=== PATIENT | female | born 1950 | race Caucasian/White ===

== ENCOUNTER → 2023-09-14 09:14 | Outpatient (CLI) | payer MEDICARE, OTHER, SELFPAY ==
[2023-09-14 10:26] LABS: Alanine Aminotransferase 19 IU/L (<35); Albumin Globulin Ratio 1.2 (1.0-2.8); Alkaline Phosphatase 67 U/L (38-126); Aspartate Aminotransferase 22 IU/L (14-36); Bilirubin Total 0.8 mg/dL (0.2-1.3); Blood Urea Nitrogen 13 mg/dL (7-17); Calcium 9.4 mg/dL (8.4-10.2); Carbon Dioxide 27 mmol/L (22-32); Chloride 104 mmol/L (98-107); Cholesterol 268 mg/dL (140-199); Estimated Glomerular Filt Rate > 60 mL/min (>60); Globulin 3.4 g/dL (1.7-4.1); Glucose 102 mg/dL (80-110); HDL Cholesterol 50 mg/dL (40-60); HEMOLYSIS < 15 (0-50); LDL Cholesterol Calculated 202 mg/dL (<100); Potassium 4.2 mmol/L (3.4-5.1); Sodium 137 mmol/L (137-145); Total Protein 7.4 g/dL (6.3-8.2); Triglycerides 81 mg/dL (35-150)
[2023-09-14 10:29] LABS: High Sensitivity CRP - Cardiac 2.9 mg/L (1.0-3.0)
[2023-09-14 11:04] LABS: Creatinine Urine Random 76.5 mg/dL; Protein (Total) Urine Random 18 mg/dL (0-12); Protein Creatinine Ratio Urine 0.23 GRAM/24H
[2023-09-29 16:42] LABS: Estradiol, Sensitive 30.6
== END ==
LOC: LAB 09:17
PROVIDERS: PCP Family Medicine; Referring Provider Family Medicine; Visit Provider Family Medicine
DX: Z13.220 Encounter for screening for lipoid disorders (principal); I10 Essential (primary) hypertension; Z79.890 Hormone replacement therapy
CPT/HCPCS: 36415; 80053; 80061; 82570; 82670; 84156; 86140

== ENCOUNTER → 2024-08-14 11:15 | Outpatient (CLI) | payer MEDICARE, OTHER, SELFPAY | PROVIDERS: PCP Family Medicine; Visit Provider Physician Assistant Medical | DX: R30.0 Dysuria (principal) | CPT/HCPCS: 87086 ==